=== PATIENT | male | born 1975 | race African-American/Black ===

== ENCOUNTER 2017-10-09 18:12 | Emergency (ER) | payer SELFPAY ==
--- NOTE | 2017-10-09 19:02 | EDM.PDOC ---
ED HPI GENERAL MEDICAL PROBLEM - General Chief Complaint: Respiratory Problem Stated Complaint: TROUBLE BREATHING Time Seen by Provider: 10/09/17 18:20 Source of Information: Reports: Patient History Limitations: Reports: No Limitations - History of Present Illness INITIAL COMMENTS - FREE TEXT/NARRATIVE: HISTORY AND PHYSICAL: History of present illness: Patient is a 42-year-old male who presents to the emergency room today with complaints of cough and fatigue 2 weeks. He states that he has had a persistent cough that won't "go away". He states he coughs so frequently and so hard that he does have some thoracic back pain and feels tired from "all the coughing". Denies any fever, chills, chest pain or shortness of breath. Denies any abdominal pain, nausea, vomiting or diarrhea/constipation. Denies any urinary or bowel concerns or complaints today. Has not received the influenza vaccine this year. Patient is a daily smoker. Recently traveled from [place] from vacation and states he's had "flulike symptoms since". Review of systems: As per history of present illness and below otherwise all systems reviewed and negative. Past medical history: As per history of present illness and as reviewed below otherwise noncontributory. Surgical history: As per history of present illness and as reviewed below otherwise noncontributory. Social history: No reported history of drug or alcohol abuse. Family history: As per history of present illness and as reviewed below otherwise noncontributory. Physical exam: General: Well-developed and well-nourished 42-year-old -[place] male. Alert and oriented. Nontoxic appearing and in no acute distress. HEENT: Atraumatic, normocephalic, pupils reactive, negative for conjunctival pallor or scleral icterus, mucous membranes moist, throat clear, neck supple, nontender, trachea midline. Lungs: Fine expiratory wheezing noted to posterior bases bilaterally otherwise clear to auscultation, breath sounds equal bilaterally, chest nontender. Normal effort of breathing. Dry persistent nonproductive cough noted. Heart: S1S2, regular rate and rhythm without overt murmurs Abdomen: Soft, nondistended, nontender. Negative for masses or hepatosplenomegaly. Negative for costovertebral tenderness. Pelvis: Stable nontender. Genitourinary: Deferred. Rectal: Deferred. Extremities: Atraumatic, moves all extremities per self without difficulty or deficits, negative for cords or calf pain. Neurovascular unremarkable. Neuro: Awake, alert, oriented. Cranial nerves II through XII unremarkable. Cerebellum unremarkable. Motor and sensory unremarkable throughout. Exam nonfocal. Due to patient's physical exam, history of smoking and longevity of symptoms will treat the patient with a Medrol Dosepak, a Z-Elton and Phenergan with codeine. Patient was completed. Supportive care measures were reviewed. Patient voices understanding and is agreeable to plan of care. He denies any questions at this time. Diagnostics: [] Therapeutics: [] Impression: Bronchitis Plan: 1. Please take your medications as directed. The Phenergan With Codeine may cause drowsiness so do not take it will driving her needing to be functioning outside of the house. Otherwise he may take [id number] products such as Tylenol and/or ibuprofen. 2. Small frequent sips of fluids to prevent dehydration. 3. Follow-up with your primary caregiver in the next 1-2 days. Return to the ED as needed and as discussed. Definitive disposition and diagnosis as appropriate pending reevaluation and review of above. Duration: Week(s): Location: Reports: Chest Treatments REGISTER OF WILLS: Reports: Other (see below) Other Treatments REGISTER OF WILLS: theraflu Back Pain Score (Numeric/FACES): 5 - Related Data Home Meds: Home Meds Losartan [Cozaar] 50 mg PO DAILY 10/09/17 [History] Past Medical History Cardiovascular History: Reports: High Cholesterol, Other (See Below) Other Cardiovascular History: states has had 3 mini [place]'s when in [place] Respiratory History: Reports: Asthma Dermatologic History: Reports: Other (See Below) Other Dermatologic History: skin discolored - Past Surgical History Musculoskeletal Surgical History: Reports: Other (See Below) Other Musculoskeletal Surgeries/Procedures:: tendon transfer right hand from injury Social & Family History - Family History Family Medical History: Noncontributory - Tobacco Use Smoking Status *Q: Current Every Day Smoker Years of Tobacco use: 27 Packs/Tins Daily: 0.5 Used Tobacco, but Quit: No Second Hand Smoke Exposure: Yes - Caffeine Use Caffeine Use: Reports: None - Alcohol Use Number of Drinks Per Day: 1 - Recreational Drug Use Recreational Drug Use: No ED ROS GENERAL - Review of Systems Review Of Systems: ROS reveals no pertinent complaints other than HPI. ED EXAM, GENERAL - Physical Exam Exam: See Below (See dictation) Course - Vital Signs Last Recorded V/S: Last Vital Signs Temp 96.8 F 10/09/17 18:30 Pulse 82 10/09/17 18:30 Resp 18 10/09/17 18:30 BP 108/58 L 10/09/17 18:30 Pulse Ox 95 10/09/17 18:30 Departure - Departure Time of Disposition: 19:02 Disposition: Home, Self-Care 01 Clinical Impression: Bronchitis - Discharge Information Instructions: Acute Bronchitis, Adult Referrals: PCP,None [Primary Care Provider] - Additional Instructions: My general discharge The following information is given to patients seen in the emergency department who are being discharged to home. This information is to outline your options for follow-up care. We provide all patients seen in our emergency department with a follow-up referral. The need for follow-up, as well as the timing and circumstances, are variable depending upon the specifics of your emergency department visit. If you don't have a primary care physician on staff, we will provide you with a referral. We always advise you to contact your personal physician following an emergency department visit to inform them of the circumstance of the visit and for follow-up with them and/or the need for any referrals to a consulting specialist. The emergency department will also refer you to a specialist when appropriate. This referral assures that you have the opportunity for follow-up care with a specialist. All of these measure are taken in an effort to provide you with optimal care, which includes your follow-up. Under all circumstances we always encourage you to contact your private physician who remains a resource for coordinating your care. When calling for follow-up care, please make the office aware that this follow-up is from your recent emergency room visit. If for any reason you are refused follow-up, please contact the [facility] Emergency Department at and asked to speak to the emergency department charge nurse. [facility] [address] [place] [id number] 1. Please take your medications as directed. The Phenergan With Codeine may cause drowsiness so do not take it will driving her needing to be functioning outside of the house. Otherwise he may take ipaz-wnw-ucdvapv products such as Tylenol and/or ibuprofen. 2. Small frequent sips of fluids to prevent dehydration. 3. Follow-up with your primary caregiver in the next 1-2 days. Return to the ED as needed and as discussed.
== END 2017-10-09 19:13 | disposition home or self-care (01) ==
LOC: MW.ED 18:12
DX: J40 Bronchitis, not specified as acute or chronic (principal); E78.00 Pure hypercholesterolemia, unspecified; F17.210 Nicotine dependence, cigarettes, uncomplicated; Z79.899 Other long term (current) drug therapy
CPT/HCPCS: 99283; 99284

== ENCOUNTER 2017-10-19 10:04 | Emergency (ER) | payer SELFPAY ==
[2017-10-19] MEDS ORDERED: Albuterol/Ipratropium 3.0-0.5 MG/3 ML Neb Soln NEB ONE (10:39)
--- NOTE | 2017-10-19 10:41 | EDM.PDOC ---
ED HPI GENERAL MEDICAL PROBLEM - General Chief Complaint: Respiratory Problem Stated Complaint: SOB Time Seen by Provider: 10/19/17 10:30 Source of Information: Reports: Patient History Limitations: Reports: No Limitations - History of Present Illness INITIAL COMMENTS - FREE TEXT/NARRATIVE: HISTORY AND PHYSICAL: History of present illness: [Comes to the emergency room complaining of cough and pain to his right rib area. States that he was in evaluated in the emergency room 2 weeks ago and was diagnosed with bronchitis. He completed the antibiotics and steroids that he was prescribed. Since then he has developed some pain to his right rib area which feels worse with taking a deep breath. He does not feel short of breath is having difficulty taking a deep breath. Denies pain across his chest or in the left side of his chest. Has had a couple of episodes of nausea but no vomiting. Denies abdominal pain. No sore throat runny nose or earaches. He denies fever and chills. He's not been taking any yvap-lqm-jeahypi medications for his symptoms. Patient states that he is self-pay and is very conscious about cost today. He continues to smoke cigarettes and marijuana regularly.] Review of systems: As per history of present illness and below otherwise all systems reviewed and negative. Past medical history: As per history of present illness and as reviewed below otherwise noncontributory. Surgical history: As per history of present illness and as reviewed below otherwise noncontributory. Social history: No reported history of drug or alcohol abuse. Family history: As per history of present illness and as reviewed below otherwise noncontributory. Physical exam: Gen.: Well-developed well-nourished black skinned male in no acute distress. Is breathing easily and appears nontoxic. HEENT: Atraumatic, normocephalic. Oral mucous membranes are pink and moist. Lungs: Mild crackles are heard in the right mid and lower lung, primarily posteriorly. Lungs are otherwise clear to auscultation. Chest is tender with palpation over right lateral ribs. Heart: S1S2, regular rate and rhythm. No murmur gallop click or rub. Abdomen: Soft, nondistended, nontender. Pelvis: Stable nontender. Genitourinary: Deferred. Rectal: Deferred. Extremities: Atraumatic, no swelling or cyanosis to feet or lower legs. Neurovascular unremarkable. Neuro: Awake, alert, oriented. Motor and sensory unremarkable throughout. Exam nonfocal. Psych: Alert oriented conversational. Is a good historian. Diagnostics: [Chest x-ray] Therapeutics: [DuoNeb] Impression: [Costochondritis Bronchitis] Plan: [Discussed with patient that his chest x-ray shows no abnormalities and no sign of pneumonia. Recommended jgty-iuu-dzyykat analgesics and anti-inflammatories for rib pain and that this is self-limited and should continue to improve. He is given a prescription for albuterol inhaler #1681-2 puffs every 4-6 hours as needed for cough wheezing or shortness of breath 0 refills he is also given an prescription for nebulizer machine with DuoNeb No. 20 sig use 3 times daily 0 refills. Establish care with a local PCP. Strict return precautions reviewed. Patients in agreement with today's plan. All questions are answered and concerns are addressed.] Definitive disposition and diagnosis as appropriate pending reevaluation and review of above. right ribs Pain Score (Numeric/FACES): 10 - Related Data Allergies Allergy/AdvReac Type Severity Reaction Status Date / Time No Known Allergies Allergy Verified 10/19/17 10:12 Home Meds: Home Meds Losartan [Cozaar] 50 mg PO DAILY 10/09/17 [History] Non-Formulary Medication [NF Drug] 200 each DAILY 10/09/17 [History] Past Medical History Cardiovascular History: Reports: High Cholesterol, Other (See Below) Other Cardiovascular History: states has had 3 mini [place]'s when in [place] Respiratory History: Reports: Asthma Dermatologic History: Reports: Other (See Below) Other Dermatologic History: skin discolored - Infectious Disease History Infectious Disease History: Reports: TB Other Infectious Disease History: exposure to TB hx in - Past Surgical History Musculoskeletal Surgical History: Reports: Other (See Below) Other Musculoskeletal Surgeries/Procedures:: tendon transfer right hand from injury Social & Family History - Family History Family Medical History: Noncontributory - Tobacco Use Smoking Status *Q: Current Every Day Smoker Years of Tobacco use: 20 Packs/Tins Daily: 0.3 Used Tobacco, but Quit: No Second Hand Smoke Exposure: Yes - Caffeine Use Caffeine Use: Reports: Coffee - Alcohol Use Number of Drinks Per Day: 1 - Recreational Drug Use Recreational Drug Use: Yes Drug Use in Last 12 Months: Yes Recreational Drug Type: Reports: Marijuana/Hashish Recreational Drug Use Frequency: Socially ED ROS GENERAL - Review of Systems Review Of Systems: ROS reveals no pertinent complaints other than HPI. ED EXAM, GENERAL - Physical Exam Exam: See Below Course - Vital Signs Last Recorded V/S: Last Vital Signs Temp 98.1 F 10/19/17 10:15 Pulse 80 10/19/17 10:15 Resp 20 10/19/17 10:15 BP 135/70 10/19/17 10:15 Pulse Ox 96 10/19/17 10:15 - Orders/Labs/Meds Orders: Active Orders 24 hr Category Date Time Status RT Aerosol Therapy [RC] ASDIRECTED Care 10/19/17 10:40 Active Chest 2V [CR] Stat Exams 10/19/17 10:39 Taken Meds: Medications Discontinued Medications Generic Name Dose Route Start Last Admin Trade Name Freq PRN Reason Stop Dose Admin Albuterol/Ipratropium 3 ml 10/19/17 10:39 10/19/17 10:46 Duoneb 3.0-0.5 Mg/3 Ml NEB 10/19/17 10:40 3 ml ONETIME ONE Administration Departure - Departure Time of Disposition: 12:01 Disposition: Home, Self-Care 01 Condition: Good Clinical Impression: Costochondritis, Bronchitis - Discharge Information Referrals: PCP,None [Primary Care Provider] - Forms: ED Department Discharge Additional Instructions: The following information is given to patients seen in the emergency department who are being discharged to home. This information is to outline your options for follow-up care. We provide all patients seen in our emergency department with a follow-up referral. The need for follow-up, as well as the timing and circumstances, are variable depending upon the specifics of your emergency department visit. If you don't have a primary care physician on staff, we will provide you with a referral. We always advise you to contact your personal physician following an emergency department visit to inform them of the circumstance of the visit and for follow-up with them and/or the need for any referrals to a consulting specialist. The emergency department will also refer you to a specialist when appropriate. This referral assures that you have the opportunity for follow-up care with a specialist. All of these measure are taken in an effort to provide you with optimal care, which includes your follow-up. Under all circumstances we always encourage you to contact your private physician who remains a resource for coordinating your care. When calling for follow-up care, please make the office aware that this follow-up is from your recent emergency room visit. If for any reason you are refused follow-up, please contact the [facility] emergency department at and asked to speak to the emergency department charge nurse. [facility] [address] [place] [id number] Follow-up with a local primary care provider or at the clinic listed above in the next 48-72 hours. Use inhaler medications as prescribed. Recommend Mucinex to thin chest secretions. Push fluids, get plenty of rest. Tylenol or ibuprofen as needed for chest discomfort. Return to ER as needed as discussed. - My Orders Last 24 Hours: My Active Orders 10/19/17 10:39 Chest 2V [CR] Stat 10/19/17 10:40 RT Aerosol Therapy [RC] ASDIRECTED - Assessment/Plan Last 24 Hours: My Active Orders 10/19/17 10:39 Chest 2V [CR] Stat 10/19/17 10:40 RT Aerosol Therapy [RC] ASDIRECTED
--- NOTE | 2017-10-20 07:00 | CR ---
EXAM DATE: 10/19/17 PATIENT'S AGE: 42 Patient: ULISSES VALERIO Facility: [place], [place] Site . Site : 1975 Study: XRay Chest [id number]/[id number] 11:16:44 AM Ordering Physician: Doctor Yo Final Report: INDICATION: Pain. Shortness of breath. Cough. COMPARISON: None. FINDINGS: PA and lateral views of the chest were obtained. The cardiac silhouette and pulmonary vasculature are within normal limits. The lungs are clear bilaterally. IMPRESSION: No evidence of acute pulmonary disease. Dictated by David Taylor MD @ 10/19/2017 11:44:42 AM Dictated by: David Taylor MD @ 10/19/2017 11:45:00 (Electronic Signature) Report Signed by Proxy. [facility]ITAL[facility]ji
== END 2017-10-19 12:35 | disposition home or self-care (01) ==
LOC: MW.ED 10:04
DX: J40 Bronchitis, not specified as acute or chronic (principal); M94.0 Chondrocostal junction syndrome [Tietze]; E78.00 Pure hypercholesterolemia, unspecified; F17.210 Nicotine dependence, cigarettes, uncomplicated; Z79.899 Other long term (current) drug therapy
CPT/HCPCS: 71046; 71046-26; 94640; 99283; 99283-25

== ENCOUNTER 2019-01-19 18:25 | Emergency (ER) | payer OTHER ==
[2019-01-19] MEDS ORDERED: Lidocaine 1% 10 ML MDV INJECT ONE (18:39)
--- NOTE | 2019-01-19 18:53 | EDM.PDOC ---
ED HPI GENERAL MEDICAL PROBLEM - General Chief Complaint: Laceration Stated Complaint: INJURED HAND Time Seen by Provider: 01/19/19 18:34 Source of Information: Reports: Patient History Limitations: Reports: No Limitations - History of Present Illness INITIAL COMMENTS - FREE TEXT/NARRATIVE: Presents reporting that he was bringing in groceries when the grocery bag caught on the edge of the counter. His right hand whipped back and hit the edge of the [place] countertop. He lacerated his dorsal hand. Previously had a tendon transfer on that hand. laceration top R hand Pain Score (Numeric/FACES): 8 - Related Data Allergies Allergy/AdvReac Type Severity Reaction Status Date / Time No Known Allergies Allergy Verified 01/19/19 18:34 Home Meds: Home Meds Losartan [Cozaar] 50 mg PO DAILY 10/09/17 [History] ClonazePAM [KlonoPIN] 1 tab PO BID 01/19/19 [History] atorvaSTATin [Lipitor] 01/19/19 [History] Past Medical History Cardiovascular History: Reports: High Cholesterol, Other (See Below) Other [facility] when in [place] Respiratory History: Reports: Asthma Dermatologic History: Reports: Other (See Below) Other Dermatologic History: skin discolored - Infectious Disease History Infectious Disease History: Reports: TB Other Infectious Disease History: exposure to TB hx in - Past Surgical History Musculoskeletal Surgical History: Reports: Other (See Below) Other Musculoskeletal Surgeries/Procedures:: tendon transfer right hand from injury Social & Family History - Family History Family Medical History: Noncontributory - Tobacco Use Smoking Status *Q: Current Every Day Smoker Years of Tobacco use: 20 Packs/Tins Daily: 0.1 - Caffeine Use Caffeine Use: Reports: Coffee - Recreational Drug Use Recreational Drug Use: No ED ROS GENERAL - Review of Systems Review Of Systems: ROS reveals no pertinent complaints other than HPI. ED EXAM, SKIN/RASH Exam: See Below Exam Limited By: No Limitations General Appearance: Alert, No Apparent Distress Ears: Normal External Exam Nose: Normal Inspection Throat/Mouth: Normal Inspection Head: Atraumatic, Normocephalic Neck: Normal Inspection Respiratory/Chest: No Respiratory Distress, Lungs Clear, Normal Breath Sounds Cardiovascular: Normal Peripheral Pulses, Regular Rate, Rhythm, No Murmur GI/Abdominal: Soft Extremities: Other (Right dorsal hand between the second and third MP joints 4 cm laceration. No bleeding. Full range of motion without hesitation or limitation all digits and wrist. pre-existing limitation to extension of the wrist CMS intact distally, pulse strong) Neurological: Alert, Oriented Psychiatric: Normal Affect, Normal Mood Skin: Warm, Dry, Intact, Normal Color, No Rash ED SKIN PROCEDURES - Laceration/Wound Repair Right Hand Lac/Wound length In cm: 4 Appearance: Superficial Distal NVT: Neuro & Vascular Intact Local Anesthesia - Lidocaine (Xylocaine): 1% Plain Local Anesthetic Volume: 4cc Skin Prep: Chlorhexidine (Hibiciens) Saline Irrigation (cc's): 50 Exploration/Debridement/Repair: Wound Explored, In a Bloodless Field, Explored to Base Closed with: Sutures Suture Size: 4-0 # of Sutures: 7 Suture Type: Nylon, Interrupted Course - Vital Signs Last Recorded V/S: Last Vital Signs Temp 36.4 C 01/19/19 18:32 Pulse 84 01/19/19 18:32 Resp 16 01/19/19 18:32 BP 132/80 01/19/19 18:32 Pulse Ox 95 01/19/19 18:32 - Orders/Labs/Meds Orders: Active Orders 24 hr Category Date Time Status Lidocaine 1% [Xylocaine 1%] Med 01/19/19 18:39 Once 10 ml INJECT ONETIME ONE Departure - Departure Time of Disposition: 19:04 Disposition: Home, Self-Care 01 Condition: Good Clinical Impression: Laceration - Discharge Information *PRESCRIPTION DRUG MONITORING PROGRAM REVIEWED*: Not Applicable *COPY OF PRESCRIPTION DRUG MONITORING REPORT IN PATIENT KYLE: Not Applicable Referrals: PCP,None [Primary Care Provider] - [facility] [Outside] [facility] [Outside] Additional Instructions: 1. Suture removal 10 days. 2. Keep clean and dry 3. Presents for signs of infection: Redness, swelling, purulent drainage - My Orders Last 24 Hours: My Active Orders 01/19/19 18:39 Lidocaine 1% [Xylocaine 1%] 10 ml INJECT ONETIME ONE - Assessment/Plan Last 24 Hours: My Active Orders 01/19/19 18:39 Lidocaine 1% [Xylocaine 1%] 10 ml INJECT ONETIME ONE
[2019-01-19] MEDS ORDERED: Bacitracin Oint 1 GM U/D Packet TOP ONE (19:03)
[2019-01-19] MEDS ORDERED: Diphtheria,Pertussis(Acell),Tetanus Vaccine 0.5 ML Syringe IM ONE (19:04)
== END 2019-01-19 19:18 | disposition home or self-care (01) ==
LOC: MW.ED 18:25
DX: S61.411A Laceration without foreign body of right hand, initial encounter (principal); E78.00 Pure hypercholesterolemia, unspecified; I25.2 Old myocardial infarction; W23.1XXA Caught, crushed, jammed, or pinched between stationary objects, initial encounter; Z79.899 Other long term (current) drug therapy; Z23 Encounter for immunization
CPT/HCPCS: 12002; 90471; 90715; 99282; J2001

== ENCOUNTER 2019-01-30 10:53 | Emergency (ER) | payer OTHER | END 2019-01-30 11:17 | disposition left against medical advice (07) | LOC: MW.ED 10:53 | DX: Z53.21 Procedure and treatment not carried out due to patient leaving prior to being seen by health care provider (principal) ==

== ENCOUNTER 2023-01-02 15:51 | Emergency (ER) | payer OTHER ==
[2023-01-02] MEDS ORDERED: Acetaminophen/oxyCODONE 325-10 MG Tab PO ONE (16:54)
[2023-01-02] MEDS ORDERED: methylPREDNISolone Sodium Succinate 125 MG/2 ML SDV IM ONE (16:54)
== END 2023-01-02 17:32 | disposition home or self-care (01) ==
LOC: MW.ED 15:51
DX: S83.92XA Sprain of unspecified site of left knee, initial encounter (principal); M25.462 Effusion, left knee; E78.00 Pure hypercholesterolemia, unspecified; J45.909 Unspecified asthma, uncomplicated; Z79.899 Other long term (current) drug therapy
CPT/HCPCS: 73562; 96372; 99283; A9270; J2930